=== PATIENT | female | born 1930 | race Caucasian/White ===

== ENCOUNTER → 2018-05-27 | Outpatient (CLI) | payer MEDICARE, BC | LOC: MC.RAD 04-19 08:00 | DX: Z12.31 Encounter for screening mammogram for malignant neoplasm of breast (principal) ==

== ENCOUNTER 2020-02-10 19:09 | Emergency (ER) | payer MEDICARE, BC ==
[~2020-02-10] VITALS: Ht 167.6 cm; Wt 79.5 kg
[2020-02-10 19:17] VITALS: TEMP 98.8
[2020-02-10] MEDS ORDERED: ZOCOR 40MG40 MG PO (19:54)
[2020-02-10] MEDS ORDERED: PRILOSEC 20MG20 MG PO (19:54)
[2020-02-10 21:34] VITALS: BP 150/80; PULSE 84
== END 2020-02-10 21:36 | disposition home or self-care (01) ==
LOC: COL.ER 19:09
DX: S00.93XA Contusion of unspecified part of head, initial encounter (principal); S52.501A Unspecified fracture of the lower end of right radius, initial encounter for closed fracture; W17.89XA Other fall from one level to another, initial encounter
CPT/HCPCS: Q4050